=== PATIENT | male | born 1985 | race African-American/Black ===

== ENCOUNTER 2018-12-27 19:55 | Emergency (ER) | payer SELFPAY ==
[~2018-12-27] VITALS: Ht 172.7 cm; Wt 82.0 kg
[2018-12-27] MEDS ORDERED: IBUPROFEN 800MG TABLET PO ONE (22:30)
[2018-12-28 00:30] VITALS: BP 126/77
== END 2018-12-28 00:55 | disposition home or self-care (01) ==
LOC: ER 19:55
DX: S43.401A Unspecified sprain of right shoulder joint, initial encounter (principal); V29.88XA Motorcycle rider (driver) (passenger) injured in other specified transport accidents, initial encounter; Y93.89 Activity, other specified; Y92.89 Other specified places as the place of occurrence of the external cause; Y99.8 Other external cause status
CPT/HCPCS: 71045; 73030; 99283; A4565

== ENCOUNTER 2023-05-17 13:11 | Emergency (ER) | payer OTHER ==
[~2023-05-17] VITALS: Ht 175.3 cm; Wt 85.0 kg
[~2023-05-17 13:11] MED LIST: DOXY100C5 MT
[2023-05-17 13:26] VITALS: BP 107/78; PULSE 91; RESP 18; TEMP 98.3; O2SAT 99
[2023-05-17 13:56] LABS: BASOPHILS % 0.2 % (0.0-2.0); EOSINOPHILS % 0.7 % (0.0-5.0); HEMATOCRIT. 53.6 % (42.0-52.0); HEMOGLOBIN. 18.6 g/dL (14.0-18.0); LYMPHOCYTES % 16.4 % (20.0-50.0); MEAN CORPUSCULAR HEMOGLOBIN 29.3 pg (28.0-32.0); MEAN CORPUSCULAR HGB CONC 34.7 g/dL (31.0-37.0); MEAN CORPUSCULAR VOLUME 84.6 fL (80.0-94.0); MEAN PLATELET VOLUME 8.7 fl (7.4-10.4); MONOCYTES % 13.6 % (2.0-8.0); NEUTROPHILS % 69.1 % (40.0-76.0); PLATELET 190 x1000/uL (130-400); RED BLOOD CELL COUNT 6.34 mill/uL (4.7-6.1); RED CELL DISTRIBUTION WIDTH 13.2 % (11.6-14.6); WHITE BLOOD COUNT 6.1 x1000/uL (4.5-11.0)
[2023-05-17 14:06] LABS: CLARITY URINE CLEAR (CLEAR); COLOR URINE YELLOW (YELLOW); GLUCOSE URINE NEGATIVE (NEGATIVE); KETONES URINE NEGATIVE (NEGATIVE); LEUKOCYTE ESTERASE URINE NEGATIVE (NEGATIVE); NITRITE URINE NEGATIVE (NEGATIVE); OCCULT BLOOD URINE NEGATIVE (NEGATIVE); PROTEIN URINE 1+ (NEGATIVE); SPECIFIC GRAVITY URINE 1.024 (1.005-1.030); UROBILINOGEN URINE 0.2 E.U./dL (0.2-1.0)
[2023-05-17 14:16] LABS: ALANINE AMINOTRANSFERASE 35 IU/L (10-49); ALBUMIN 5.4 g/dL (3.2-4.8); ASPARTATE AMINOTRANSFERASE 36 IU/L (<34); BILIRUBIN TOTAL 0.5 mg/dL (0.1-1.0); CALCIUM 8.9 mg/dL (8.7-10.4); CARBON DIOXIDE 25 mEq/L (21-32); CHLORIDE 103 mEq/L (98-107); CREATININE 1.4 mg/dL (0.6-1.3); GLUCOSE 84 mg/dL (70-105); POTASSIUM 4.3 mEq/L (3.5-5.1); SODIUM 135 mEq/L (136-145); UREA NITROGEN BLOOD 22 mg/dL (9-23)
[2023-05-17 14:26] LABS: BACTERIA URINE FEW; RBC URINE 0-2 /hpf (0-2); SQUAMOUS EPITHELIAL CELL URINE NONE SEEN /lpf (RARE/1+); YEAST URINE NONE SEEN
== END 2023-05-17 15:24 | disposition home or self-care (01) ==
LOC: ER 13:11
DX: M54.50 Low back pain, unspecified (principal); R19.7 Diarrhea, unspecified; Z90.49 Acquired absence of other specified parts of digestive tract
CPT/HCPCS: 36415; 80053; 81003; 85025; 99283

== ENCOUNTER 2024-06-23 02:02 | Emergency (ER) | payer OTHER ==
[~2024-06-23] VITALS: Ht 175.3 cm; Wt 94.0 kg
[2024-06-23 02:19] VITALS: O2SAT 98
[2024-06-23 04:18] VITALS: BP 136/87; PULSE 87; RESP 14; TEMP 36.4; O2SAT 99
== END 2024-06-23 04:18 | disposition home or self-care (01) ==
LOC: ER 02:02
DX: M77.02 Medial epicondylitis, left elbow (principal); Z90.49 Acquired absence of other specified parts of digestive tract
CPT/HCPCS: 99281